=== PATIENT | male | born 1985 | race Caucasian/White ===

== ENCOUNTER 2019-01-01 20:41 | Emergency (ER) | payer SELFPAY ==
[~2019-01-01] VITALS: Ht 177.8 cm; Wt 149.7 kg
[2019-01-01 20:57] VITALS: BP_SYST 161
--- NOTE | 2019-01-01 21:01 | NUR ---
Patient to ER bed 05 to gown for evaluation. Side rails up.
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
--- NOTE | 2019-01-01 21:10 | NUR ---
ED MD [place] bedside for medical evaluation.
[2019-01-01] MEDS ORDERED: CYCLOBENZAPRINE HCL 10 MG TABLET (FLEXERIL) PO ONE (21:15)
[2019-01-01] MEDS ORDERED: IBUPROFEN 800 MG TABLET PO ONE (21:15)
--- NOTE | 2019-01-01 21:45 | NUR ---
Patient given written and verbal discharge instructions and verbalizes understanding. ER MD discussed with patient the results and treatment provided. Patient in stable condition. ID arm band removed. Rx of ibuprofen and flexeril given. Patient educated on pain management and to follow up with PMD. Pain Scale 3/10 tolerable for patient. Opportunity for questions provided and answered. Medication side effect fact sheet provided.
== END 2019-01-01 21:45 | disposition home or self-care (01) ==
LOC: SED 20:41
DX: S20.211A Contusion of right front wall of thorax, initial encounter (principal); R22.32 Localized swelling, mass and lump, left upper limb; V47.5XXA Car driver injured in collision with fixed or stationary object in traffic accident, initial encounter; Y93.89 Activity, other specified; Y92.410 Unspecified street and highway as the place of occurrence of the external cause; Y99.8 Other external cause status
CPT/HCPCS: 71045; 99282